=== PATIENT | male | born 1975 | race Caucasian/White ===

== ENCOUNTER 2022-03-04 11:44 | Emergency (ER) | payer SELFPAY ==
[2022-03-04 11:53] VITALS: BP 142/93; PULSE 83; RESP 14; TEMP 36.8; O2SAT 95; BMI 44.0
--- NOTE | 2022-03-04 12:13 | ED_ITS ---
HPI - General Adult General: Chief complaint: General Medical Stated complaint: Detox Time Seen by Provider: 03/04/22 12:00 History of Present Illness: Patient is a 46-year-old male with history of polysubstance use presenting to the emergency room with request of his primary care provider for evaluation of acute opiate withdrawal. Last time patient did opiate was 16 hours ago. Patient has some oxycodone at home. Patient tells me that he also uses other drugs. Patient wants to quit. Patient was seen earlier today by his primary care provider if he had extra clinic requesting medication to help patient with the withdrawal process. Patient's primary care provider does not recommend buprenorphine at this time. He denies any goosebumps, nausea/vomiting, shivering, diarrhea, abdominal complaints or cramps or any other symptoms. Onset:8 hrs ago Duration:ongoing Location:home Severity:mild Associated symptoms: Deny chest pain, dyspnea, nausea, rash, palpitations or vomiting Review of Systems Const: Denies: fever(s) or chills Eyes: Denies: change in vision ENMT: Denies: mouth pain Card: Denies: chest pain or palpitations Resp: Denies: dyspnea or non-productive cough GI: Denies: abdominal pain, nausea, vomiting or diarrhea : Denies: dysuria Musc: Denies: extremity pain Skin/Breast: Denies: rash or new lesions Neuro: Denies: weakness in extremities Psych: Reports: other (Normal mood) Sha/Lymph: Denies: easy bruising PFSH ED PFSH: Medical History Polysubstance (excluding opioids) dependence, daily use Social History Smoking and tobacco status: current every day smoker Alcohol intake: never Substance/Drug Use: current Physical Exam Const: COMMON NORMALS: alert HENMT: COMMON NORMALS: atraumatic HEAD & SCALP: atraumatic MOUTH: moist mucous membranes not abnormal Eye: COMMON NORMALS: EOMs intact bilaterally and conjunctivae normal CONJUNCTIVA: Yes conjunctivae normal Neck/C-Spine: COMMON NORMALS: full ROM and supple Resp: COMMON NORMALS: normal respiratory effort and clear to auscultation bilaterally AUSCULTATION: clear to auscultation bilaterally Cardio: COMMON NORMALS: regular rate RATE: regular rate GI: COMMON NORMALS: Soft to palpation and non-tender PALPATION: Yes Soft to palpation OTHER: No focal TTP. NO guarding rebound, guarding, rigidity. No CVA tenderness to percussion. Neg Syed/Neg McBurney's point tenderness, no suprabupic tenderness to palpation. Extremity: COMMON NORMALS: full ROM Neuro: SENSORIUM/ORIENTATION: Yes alert MOTOR EXAM: No Abnormal motor strength present and Other motor observations present (no focal motor deficits) Psych: COMMON NORMALS: speech normal SPEECH: Yes normal speech MOOD & AFFECT: Yes euthymic mood Course Vital Signs: Vital signs: Vital Signs Temperature 98.3 F 03/04/22 11:53 Pulse Rate 83 03/04/22 11:53 Respiratory Rate 14 03/04/22 11:53 Blood Pressure 142/93 03/04/22 11:53 Pulse Oximetry 95 03/04/22 11:53 Oxygen Delivery Me thod 03/04/22 11:53 MDM - General Adult Medical Decision Making 46-year-old male presenting to the emergency with concerns of acute opiate withdrawal. On physical exam, patient has a COWS score of 1 (anxiety only). I discussed case with patient's primary care provider who recommended the patient be started on conservative treatments. Patient received Zofran/Ativan/clonidine in the emergency room reports feeling symptomatically improved. At the present time, patient tells me that he will follow-up with his primary care provider for reassessment. Rx clonidine and zofran PRN withdrawal symptoms Disposition: Discharge. Patient counseled regarding diagnostic impression, treatment plan. Patient given ED strict return precautions to return for continuation, worsening, or development of new symptoms. Instructed to f/u w/ PCP regarding symptoms today. Patient verbalized understanding. Discharge Plan Discharge Condition: Stable Referrals: Candido Leary MD [Primary Care Provider] - Coding Level of Care Code ED Asphalt Paver Operator for Chg Fwd Exam Comprehensive
[2022-03-04 12:30] VITALS: BP 139/87
[2022-03-04] MEDS: ondansetron 4 MG Tablet PO (12:30)
[2022-03-04] MEDS: cloNIDine 0.1 mg Tablet PO (12:30)
[2022-03-04 12:31] VITALS: BP 139/87; PULSE 72; RESP 16; O2SAT 97
[2022-03-04] MEDS: LORazepam 1 mg Tablet PO (12:31)
[2022-03-04 12:52] VITALS: BP 137/92; PULSE 64; RESP 18; O2SAT 98
[2022-03-04 12:56] VITALS: BP 137/92; PULSE 64; RESP 18; TEMP 36.8; O2SAT 98
== END 2022-03-04 13:00 | disposition home or self-care (01) ==
PROVIDERS: Emergency Provider Emergency Medicine; PCP Family Medicine
DX: F19.90 Other psychoactive substance use, unspecified, uncomplicated (principal); F17.210 Nicotine dependence, cigarettes, uncomplicated
CPT/HCPCS: 99283; Q0162

== ENCOUNTER 2023-04-04 12:46 | Emergency (ER) | payer MEDICAID, SELFPAY ==
--- NOTE | 2023-04-04 12:48 | XRR_ITS ---
PROCEDURE INFORMATION: Exam: XR Right Hip Exam date and time: 04/04/2023 1:12 PM Age: 47 years old Clinical indication: Hip pain; Right hip TECHNIQUE: Imaging protocol: Radiologic exam of the right hip. Views: 2 or 3 views hip with pelvis when performed. COMPARISON: No relevant prior studies available. FINDINGS: Bones/joints: Status post right total hip arthroplasty. No radiographic evidence of hardware fracture or perihardware lucency. No acute osseous fracture or dislocation identified. Soft tissues: Superficial soft tissues are within normal limits. XR/XR hip RT 2-3V wo/w pel* [id number] IMPRESSION: Status post right total hip arthroplasty. No radiographic evidence of hardware complication.
[2023-04-04 13:01] VITALS: BP 147/95; PULSE 102; RESP 16; TEMP 37; O2SAT 96
--- NOTE | 2023-04-04 13:10 | ED_ITS ---
HPI - Extremity Problem General: Chief complaint: Extremity Problem,Nontraumatic Stated complaint: severe right hip pain Time Seen by Provider: 04/04/23 13:08 History of Present Illness: 47-year-old male patient comes in today with increased right hip pain. Patient reports that he fell approximately 2 weeks ago and injured his left side but feels that his right side now is more aggravated. 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 Patient also has a history of chronic back pain. Patient appears nontoxic. Patient appears in mild to moderate pain. Review of Systems General: Reports: 10 or more systems reviewed and unremarkable except in HPI and below Musc: Reports: joint pain (Right hip pain) PFS ED PFSH: Medical History Polysubstance (excluding opioids) dependence, daily use Social History Smoking and tobacco status: current every day smoker Alcohol intake: never Substance/Drug Use: current Physical Exam Const: COMMON NORMALS: alert HENMT: COMMON NORMALS: normocephalic HEAD & SCALP: normocephalic Neck/C-Spine: COMMON NORMALS: full ROM Resp: COMMON NORMALS: normal respiratory effort Cardio: COMMON NORMALS: regular rate RATE: regular rate Back/Pelvis: COMMON NORMALS: thoracic and lumbar spine normal to inspection Extremity: COMMON NORMALS: no pedal edema RIGHT LOWER EXTREMITY: Yes hip joint (Tenderness, decreased range of motion) Neuro: SENSORIUM/ORIENTATION: Yes alert Skin: COMMON NORMALS: no rashes or lesions noted GENERAL SKIN EXAM: no rashes or lesions noted Course Vital Signs: Vital signs: Vital Signs Temperature 98.6 F 04/04/23 13:01 Pulse Rate 102 H 04/04/23 13:01 Respiratory Rate 16 04/04/23 13:01 Blood Pressure 147/95 04/04/23 13:01 Pulse Oximetry 96 04/04/23 13:01 Oxygen Delivery Me thod Room Air 04/04/23 13:01 MDM - Extremity (Nontraumatic) Medical Decision Making 47-year-old male patient comes in today for complaints of pain to the right hip. Patient reports he fell approximately 2 weeks ago at home and was seen at [facility] but noted no fractures or abnormalities. Patient reports at that time he had a x-ray of his left hip but is is now his right hip that is bothering him. Patient does have a joint replacement of the right hip due to a history of avascular necrosis. On exam patient is able to bear weight. Patient has good range of motion with some limitation of full extension and flexion of the hip. Most likely that is due to the replacement of the hip. Differential diagnosis includes fracture, contusion, malingering, inter vertebral disc disease. X-ray of the pelvis and hip noted no fractures and stable hardware. Patient was given 30 mg of ketorolac and 1 hydrocodone 11/04/2024 for his pain and was discharged home with a short prescription of 7 tablets for hydrocodone. Patient was recommended to follow-up with his primary care for referral to pain management and continue with routine care otherwise. Patient stated understanding and agreed to plan. Lab Data Radiology Impressions Hip/Pelvis X-Ray 04/04/23 12:48 IMPRESSION: Status post right total hip arthroplasty. No radiographic evidence of hardware complication. All radiology interpretation(s) finalized by discharge Discharge Plan Discharge Patient Disposition: Home Clinical Impression: Hip pain, right Condition: Stable Prescriptions: New hydrocodone-acetaminophen 5-325 mg tablet 1 tab PO Q8H PRN (Reason: pain (scale score 7-10)) Qty: 7 0RF Discontinued oxycodone-acetaminophen [Percocet] 10-325 mg Tablet 1 tab PO 5XD No Action Celexa 40 mg Tablet 40 mg PO DAILY Zyrtec 10 mg Tablet 10 mg PO DAILY aspirin 325 mg Tablet 325 mg PO DAILY Tylenol Ex Str Rapid Release 500 mg Tablet 1,000 mg PO Q6H PRN (Reason: Pain) Provigil 200 mg Tablet 200 mg PO QAM gabapentin 300 mg Capsule 300 mg PO TID atenolol 50 mg Tablet 50 mg PO DAILY magnesium oxide 400 mg magnesium Tablet 400 mg PO DAILY Discharge Orders: Discharge ED (Routine); Ordered 04/04/23 Ordered By: Sean Alas Referrals: Candido Leary MD [Primary Care Provider] - Discharge Diet: Usual diet Discharge Activity: Increase activity as tolerated Patient Instructions: Opioid Safety, Pain Management Activity Restrictions/Additional Instructions: Follow-up with primary care or specialist for further evaluation and treatment. Talk with your primary care provider about following up with pain management for further treatment. Return to ED for new concerns. Coding Level of Care Code ED Bookkeeping Assistant for Jovita Peña
[2023-04-04] MEDS: ketorolac 30 mg/mL INJ IM (13:31)
[2023-04-04] MEDS: HYDROcodone-acetaminophen 5-325 mg Tablet 1 TAB PO (14:46)
== END 2023-04-04 14:49 | disposition home or self-care (01) ==
PROVIDERS: Emergency Provider Nurse Practitioner Family; PCP Family Medicine
DX: M25.551 Pain in right hip (principal); Z79.82 Long term (current) use of aspirin; F17.210 Nicotine dependence, cigarettes, uncomplicated
CPT/HCPCS: 73502; 96372; 99284; J1885

== ENCOUNTER 2023-04-25 06:15 | Emergency (ER) | payer MEDICAID, SELFPAY ==
[2023-04-25 06:22] VITALS: BP 166/94; PULSE 107; RESP 16; TEMP 36.9; O2SAT 99; BMI 41.8
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
[2023-04-25] MEDS: ketorolac 60 mg/2 mL INJ IM (06:59)
[2023-04-25] MEDS: acetaminophen 325 mg Tablet 650 MG PO (06:59)
== END 2023-04-25 08:05 | disposition home or self-care (01) ==
PROVIDERS: Emergency Provider Family Medicine; PCP Family Medicine
DX: K02.9 Dental caries, unspecified (principal); Z79.82 Long term (current) use of aspirin; F17.210 Nicotine dependence, cigarettes, uncomplicated
CPT/HCPCS: 70486; 72125; 96372; 99284; J1885

== ENCOUNTER 2023-05-31 14:17 | Emergency (ER) | payer MEDICAID, SELFPAY ==
[2023-05-31 14:23] VITALS: BP 123/92; PULSE 97; RESP 15; TEMP 37.1; O2SAT 97; BMI 44.6
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
--- NOTE | 2023-05-31 14:54 | PC.PHAR ---
pt states he takes care of his own medications-pt states his gabapentin 300mg filled 05/17/23 30d/s and 600mg tid filled 04/26/23 30d/s prn was dced-pt states he takes cymbalta 30mg qam rx filled 04/26/23 30d/s 30mg bid-pt had flexeril 10mg tid prn filled 05/05/23 pt states doesnt take-
== END 2023-05-31 15:34 | disposition home or self-care (01) ==
PROVIDERS: Emergency Provider Physician Assistant; PCP Family Medicine
DX: K02.9 Dental caries, unspecified (principal); Z72.0 Tobacco use
CPT/HCPCS: 99283

== ENCOUNTER 2023-07-07 06:00 | Outpatient (RCR) | payer MEDICAID, SELFPAY | END 2023-08-04 23:59 | disposition home or self-care (01) | LOC: GPT 06:00 | PROVIDERS: Visit Provider Family Medicine Adult Medicine | DX: M54.9 Dorsalgia, unspecified (principal); G89.29 Other chronic pain | CPT/HCPCS: 97112; 97140; 97162 ==